=== PATIENT | male | born 1945 | race Caucasian/White ===

== ENCOUNTER → 2016-12-20 | Day surgery (SDC) | payer OTHER ==
[~2016-12-20] MED LIST: ALLOPURINOL300 MG PO; AMLODIPINE BESYL5 MG PO; ATORVASTATIN CA10 MG PO; COUMADIN10 MG PO; COZAAR100 MG PO; FUROSEMIDE40 MG PO; LO-DOSE ASPIRIN81 M1 PO; METOPROLOL SUC100 MG PO
--- NOTE | ~2016-12-20 | OR ---
Unit #: [id number] #: [id number] Patient: HONORIO CRESPO [id number] [place], [place] [address] [id number] O MR#: [id number] NAME: HONORIO CRESPO ROOM: Date of Procedure: 12/20/2016 Admission Date: 12/20/2016 Surgeon: Miguel Jiménez M.D. : 1945 Attending Physician: Miguel Jiménez M.D. Primary Care Physician: Yasmeen Harris M.D. OPERATIVE REPORT PRIMARY CARE PHYSICIAN Yasmeen Harris M.D. PREOPERATIVE DIAGNOSIS Personal history of adenomatous polyps of the colon. POSTOPERATIVE DIAGNOSIS Sigmoid diverticulosis. PROCEDURE PERFORMED Colonoscopy to cecum. ANESTHESIA Monitored anesthesia. INDICATIONS FOR PROCEDURE A 71-year-old gentleman, who has had previous history of adenomatous polyps of the colon removed and is due for surveillance colonoscopy. He is otherwise asymptomatic at this time. DESCRIPTION OF PROCEDURE The patient admitted to [facility], positively identified, transported to the endoscopy unit and after appropriate monitoring and positioning, he was sedated by the nurse school counselor. On rectal examination, there was no local anorectal pathology, and prostate was normal to digital examination. Colonoscope was passed through the anal verge and throughout the extent of the colon to the cecum. On antegrade and retrograde visualization, no polyps were noted throughout the colon; however, he did have moderate to severe diverticulosis of the sigmoid colon. There was no internal hemorrhoidal disease on retroflexing the scope. The patient tolerated the procedure well and was transported to recovery in stable condition. Findings were discussed with the family. At this time, we recommended a high-fiber diet and a surveillance colonoscopy in 5 years if he remains otherwise asymptomatic in the interim. Dictated by... Miguel Jiménez M.D. RS/tanial Unit #: [id number] #: [id number] Patient: HONORIO CRESPO TD: 12/20/2016 17:45 JOB #: [id number] CC: Yasmeen Harris M.D. OPERATIVE REPORT Page 1 of 1 X Miguel Jiménez MD PROCEDURE OPERATIVE NOTE
--- NOTE | ~2016-12-20 | HP ---
Unit #: [id number] #: [id number] Patient: HONORIO LA [id number] [address] [address] [id number] O MR#: [id number] NAME: HONORIO LA. ROOM: Age: 71 Sex: M Admission Date: 12/20/2016 : 1945 Attending Physician: Miguel Jiménez M.D. Primary Care Physician: Yasmeen Harris M.D. HISTORY AND PHYSICAL HISTORY OF PRESENT ILLNESS Mr. La is a 71-year-old gentleman with a history of adenomatous polyps of the colon, who is due for surveillance colonoscopy. He is otherwise asymptomatic at this time. PAST MEDICAL HISTORY 1. Hypertension. 2. Basal cell carcinoma. 3. Atrial fibrillation. 4. Arthritis. 5. Hypercholesterolemia. 6. Sleep apnea. PAST SURGICAL HISTORY 1. He has had two previous colonoscopies with polypectomy. His last colonoscopy was five years ago. 2. Previous knee surgery. SOCIAL HISTORY . Two children. Denies the use of tobacco. He is retired. FAMILY HISTORY He is unaware of any chronic or inheritable diseases. ALLERGIES Sulfa and penicillin. CURRENT MEDICATIONS 1. Amlodipine. 2. Allopurinol. 3. Metoprolol. 4. Losartan. 5. Furosemide. 6. Lasix. 7. Coumadin. IMMUNIZATIONS Up to date. He has not had a flu or pneumonia vaccine. REVIEW OF SYSTEMS Otherwise unremarkable. PHYSICAL EXAMINATION GENERAL: Awake, alert and oriented. Unit #: [id number] #: [id number] Patient: HONORIO LA VITALS: Blood pressure 140/90, pulse 90, respiratory rate 18. HEENT: Unremarkable. LUNGS: Clear. HEART: Irregular rhythm. ABDOMEN: Soft. EXTREMITIES: No edema. NEUROLOGIC: Grossly intact. ASSESSMENT/PLAN The patient is a 71-year-old gentleman with a history of adenomatous polyps of the colon, due for surveillance. I discussed the procedure, including the risks, benefits, complications and bowel prep. He understands and agrees to proceed. Dictated by Miguel Jiménez M.D. JULY/jemima TD: 12/20/2016 08:00 JOB #: [id number] HISTORY AND PHYSICAL Page 1 of 1 X Miguel Jiménez MD HISTORY AND PHYSICAL
== END | disposition home or self-care (01) ==
LOC: COPS 05:39
DX: Z12.11 Encounter for screening for malignant neoplasm of colon (principal); K57.30 Diverticulosis of large intestine without perforation or abscess without bleeding; I48.91 Unspecified atrial fibrillation; I10 Essential (primary) hypertension; M19.90 Unspecified osteoarthritis, unspecified site; E78.00 Pure hypercholesterolemia, unspecified; G47.30 Sleep apnea, unspecified; E66.01 Morbid (severe) obesity due to excess calories; Z86.010 Personal history of colon polyps; Z88.0 Allergy status to penicillin; Z88.2 Allergy status to sulfonamides; Z79.01 Long term (current) use of anticoagulants; Z79.899 Other long term (current) drug therapy; Z98.890 Other specified postprocedural states
CPT/HCPCS: J2250